=== PATIENT | male | born 1955 | race Caucasian/White ===

== ENCOUNTER → 2016-11-26 | Outpatient (CLI) | payer OTHER ==
[~2016-11-26] VITALS: Ht 188 cm; Wt 113.4 kg
[~2016-11-26] MED LIST: ACETAMINOPHEN INTRAVENOUS 100 ML IV ONE; BUPIVACAINE-EPI 0.25%-1:200000 50 ML VIAL. ONE; CEFAZOLIN 2GM PREMIX 50 ML IV PRN; IOHEXOL 300 MG/ML 100ML VIAL. ONE; IOHEXOL 300 MG/ML 50 ML VIAL. ONE; SURGICEL HEMOSTAT 4X8 EACH. ONE
== END | disposition home or self-care (01) ==
LOC: PCVCIMAG 11:58
PROVIDERS: ATTEND Nuclear Medicine Nuclear Cardiology
DX: I87.2 Venous insufficiency (chronic) (peripheral) (principal); I10 Essential (primary) hypertension; E78.00 Pure hypercholesterolemia, unspecified; E11.9 Type 2 diabetes mellitus without complications
CPT/HCPCS: 93970; Q9967